=== PATIENT | male | born 1975 | race Caucasian/White ===

== ENCOUNTER 2018-08-20 05:32 | Inpatient (IN) | payer OTHER ==
[~2018-08-20] VITALS: Ht 175.3 cm; Wt 73.9 kg
[2018-08-20 08:04] LABS: BASOPHILS % 0.3 % (0.0-2.0); EOSINOPHILS % 0.9 % (0.0-5.0); HEMOGLOBIN. 15.4 g/dL (14.0-18.0); LYMPHOCYTES % 7.9 % (20.0-50.0); MEAN CORPUSCULAR HEMOGLOBIN 32.5 pg (28.0-32.0); MEAN CORPUSCULAR VOLUME 95.2 fL (80.0-94.0); MEAN PLATELET VOLUME 8.4 fl (7.4-10.4); MONOCYTES % 12.2 % (2.0-8.0); NEUTROPHILS % 78.7 % (40.0-76.0); PLATELET 175 x1000/uL (130-400); RED BLOOD CELL COUNT 4.73 mill/uL (4.7-6.1); RED CELL DISTRIBUTION WIDTH 14.6 % (11.6-14.6)
[2018-08-20 08:08] LABS: CHLORIDE 107 mEq/L (98-107)
[2018-08-20] MEDS ORDERED: ASPIRIN 81MG TABLET PO ONE (08:15)
[2018-08-20] MEDS ORDERED: CLONIDINE 0.1MG TABLET PO ONE (08:30)
[2018-08-20 10:35] VITALS: BP 144/90
[2018-08-20 12:00] VITALS: BP 132/93
[2018-08-20] MEDS ORDERED: DOCUSATE SODIUM 100MG CAPSULE PO PRN (13:00)
[2018-08-20] MEDS ORDERED: ONDANSETRON HCL 4MG/2ML INJ IV PRN (13:00)
[2018-08-20] MEDS ORDERED: HYDROCODONE/ACETAMINOPHEN 5/325MG TABLET PO PRN (13:00)
[2018-08-20] MEDS ORDERED: ACETAMINOPHEN 325MG TABLET PO PRN (13:00)
[2018-08-20] MEDS ORDERED: CLONIDINE 0.1MG TABLET PO PRN (13:00)
[2018-08-20] MEDS ORDERED: REGADENOSON 0.4 MG/5 ML IV NR (13:45)
[2018-08-20] MEDS: CLONIDINE 0.1MG TABLET PO SCH ×2 (14:30→20:25)
[2018-08-20] MEDS ORDERED: ENOXAPARIN 40MG/0.4ML SYR SUBCUT SCH (14:30)
[2018-08-20] MEDS ORDERED: LOSA100T14 MT (14:50)
[2018-08-20] MEDS ORDERED: ASPI-1159 MT (14:51)
[2018-08-20 16:00] VITALS: BP 130/87
[2018-08-20 17:09] LABS: CREATINE KINASE 70 IU/L (39-308)
[2018-08-20 17:10] LABS: CREATINE KINASE MB FRACTION < 1.0 ng/mL (0.5-3.6)
[2018-08-20 20:00] VITALS: BP 142/100
[2018-08-20] MEDS: NITROGLYCERIN OINT 1GM/INCH UDPKT TD SCH ×2 (20:25→20:26)
[2018-08-21] VITALS: BP 117/73
[2018-08-21 02:10] LABS: CREATINE KINASE 62 IU/L (39-308)
[2018-08-21 02:11] LABS: CREATINE KINASE MB FRACTION < 1.0 ng/mL (0.5-3.6)
[2018-08-21 04:00] VITALS: BP 117/70
[2018-08-21] MEDS: CLONIDINE 0.1MG TABLET PO SCH ×2 (06:10→14:58)
[2018-08-21] MEDS: NITROGLYCERIN OINT 1GM/INCH UDPKT TD SCH ×2 (06:10→14:58)
[2018-08-21 07:05] LABS: CHLORIDE 104 mEq/L (98-107)
[2018-08-21 07:17] LABS: HEMATOCRIT. 41.7 % (42.0-52.0); HEMOGLOBIN. 14.4 g/dL (14.0-18.0); MEAN CORPUSCULAR HEMOGLOBIN 32.6 pg (28.0-32.0); MEAN CORPUSCULAR VOLUME 94.4 fL (80.0-94.0); MEAN PLATELET VOLUME 8.6 fl (7.4-10.4); PLATELET 161 x1000/uL (130-400); RED BLOOD CELL COUNT 4.41 mill/uL (4.7-6.1); RED CELL DISTRIBUTION WIDTH 14.2 % (11.6-14.6)
[2018-08-21 07:20] LABS: LDL CHOLESTEROL 65 mg/dL (5-100)
[2018-08-21 07:21] LABS: HDL CHOLESTEROL 65 mg/dL (40-59)
[2018-08-21 08:00] VITALS: BP 128/89
[2018-08-21] MEDS ORDERED: AMLODIPINE 10MG TABLET PO SCH (09:00)
[2018-08-21] MEDS ORDERED: ASPIRIN 81MG EC TABLET PO SCH (09:00)
[2018-08-21] MEDS ORDERED: LIDOCAINE HCL 1% 20ML VIAL (Pyxis) INJ ONE (09:56)
[2018-08-21] MEDS ORDERED: IOHEXOL-300 100 ML BOTTLE ONE ×3 (09:56→11:09)
[2018-08-21] MEDS ORDERED: MIDAZOLAM HCL 2 MG/2 ML VIAL ONE (10:34)
[2018-08-21] MEDS ORDERED: FENTANYL CITRATE/PF 50MCG/ML 2ML VIAL ONE (10:35)
[2018-08-21] MEDS ORDERED: ATROPINE SULFATE 1MG/10ML SYR IV PRN (11:30)
[2018-08-21] MEDS ORDERED: ACETAMINOPHEN 325MG TABLET PO PRN (11:30)
[2018-08-21 12:00] VITALS: BP 123/69
[2018-08-21] MEDS ORDERED: SODIUM CHL 0.45% + KCL 20MEQ/L 1,000 ML IV SCH (13:00)
[2018-08-21 16:00] VITALS: BP_SYST 116; BP_SYST 139; BP_DIAS 69; BP_DIAS 88
[2018-08-21 22:24] LABS: PLATELET ESTIMATE NORMAL
== END 2018-08-21 18:44 | disposition left against medical advice (07) | DRG 287 ==
LOC: ER 05:32 → 8WST 08:35 → EDBEDREQ 08:44 → ENRESERV 10:02 → 3WST 08-21 14:52
PROVIDERS: ADMIT Hospitalist; ATTEND Hospitalist
PROC: 4A023N7 Measurement of Cardiac Sampling and Pressure, Left Heart, Percutaneous Approach (ICD-10-PCS; principal; 2018-08-21)
PROC: B2111ZZ Fluoroscopy of Multiple Coronary Arteries using Low Osmolar Contrast (ICD-10-PCS; 2018-08-21)
DX: R07.9 Chest pain, unspecified (principal); E44.0 Moderate protein-calorie malnutrition; F17.210 Nicotine dependence, cigarettes, uncomplicated; Z53.21 Procedure and treatment not carried out due to patient leaving prior to being seen by health care provider; I10 Essential (primary) hypertension; I25.119 Atherosclerotic heart disease of native coronary artery with unspecified angina pectoris; Z82.49 Family history of ischemic heart disease and other diseases of the circulatory system; Z68.21 Body mass index [BMI] 21.0-21.9, adult
CPT/HCPCS: 36415; 71045; 80061; 82550; 82553; 83880; 84484; 93005; 93306; 93458; 99285; C1760; C1769; C1887; C1893; J1644; J1650; J2250; J3010; J3480; J3490; Q9967

== ENCOUNTER 2022-02-10 21:59 | Emergency (ER) | payer OTHER ==
[~2022-02-10 21:59] MED LIST: ASPI-1497 MT; LOSA100T32 MT
== END 2022-02-10 23:03 | disposition left against medical advice (07) ==
LOC: ER 21:59
DX: Z53.21 Procedure and treatment not carried out due to patient leaving prior to being seen by health care provider (principal)